=== PATIENT | female | born 1965 | race American Indian/Alaskan Native ===

== ENCOUNTER 2018-02-04 17:17 | Emergency (ER) | payer BC ==
[2018-02-04 17:21] VITALS: BP 109/67; RESP 18; TEMP 97.6; BMI 22.8
[2018-02-04 19:23] LABS: BASO # 0.03 K/mm3 (0.0-2.0); BASO % 0.5 % (0.0-3.0); EOS % 0.3 % (1.5-5.0); GRAN # 4.07 (1.4-6.5); GRAN % 62.4 % (50.0-68.0); HEMOGLOBIN 13.9 g/dL (12.0-16.0); LYMPH # 1.9 (1.2-3.4); LYMPH % 29.4 % (22.0-35.0); MEAN CELL VOLUME 88.9 fl (80.0-105.0); MEAN CORPUSCULAR HEMOGLOBIN 30.8 pg (25.0-35.0); MEAN CORPUSCULAR HGB CONC 34.7 g/dl (31.0-37.0); MEAN PLATELET VOLUME 10.6 fl (7.0-11.0); MONO # 0.5 (0.1-0.6); MONO % 7.4 % (1.0-6.0); RBC 4.51 10^6/uL (3.5-6.1); RED CELL DISTRIBUTION WIDTH 13.4 % (11.5-14.5); WHITE BLOOD COUNT 6.5 10^3/ul (4.5-11.0)
[2018-02-04 19:33] LABS: ALB/GLOB RATIO 1.2 (1.1-1.8); ALBUMIN 4.7 g/dL (3.0-4.8); ALT/SGPT 37 U/L (7-56); AST/SGOT 38 U/L (14-36); BLOOD UREA NITROGEN 13 mg/dL (7-21); GFR AFRICAN-AMERICAN > 60; GFR NON-AFRICAN AMERICAN > 60
--- NOTE | 2018-02-04 20:45 | ED PDOC ---
Arrival/HPI - General Historian: Patient <Romelia Langford - Last Filed: 02/04/18 20:41> <Hemant Segal - Last Filed: 02/04/18 22:39> - General Chief Complaint: Lower Extremity Problem/Injury Time Seen by Provider: 02/04/18 18:32 - History of Present Illness Narrative History of Present Illness (Text): 02/04/18 20:42 52yr old female presents today with left knee pain and swelling since yesterday. Patient states she was going up the stairs and suddenly felt pain in the left knee. Patient states since then she's noticed significant swelling warmth and pain with range of motion of the knee. Patient states she is able to ambulate but is having significant pain. No medications have been taken for pain at home. Patient denies numbness weakness or tingling in the extremity. Patient denies fevers or chills. No chest pain or shortness of breath. Patient denies any trauma or injury but states she was marching over the weekend. ( Romelia Langford) Past Medical History - Provider Review Nursing Documentation Reviewed: Yes - Travel History Have you recently traveled outside [place] w/in the past 3 mons?: No - Reproductive Menopause: Yes - Psychiatric Hx Substance Use: No - Anesthesia Hx Anesthesia: No <Romeila Langford - Last Filed: 02/04/18 20:41> Family/Social History - Physician Review Nursing Documentation Reviewed: Yes Family/Social History: Unknown Family HX Smoking Status: Never Smoked Hx Alcohol Use: No Hx Substance Use: No <Romelia Langford - Last Filed: 02/04/18 20:41> Allergies/Home Meds <Romelia Langford - Last Filed: 02/04/18 20:41> <Hemant Segal - Last Filed: 02/04/18 22:39> Allergies/Adverse Reactions: Allergies No Known Allergies Allergy (Verified 02/04/18 18:51) Review of Systems - Review of Systems Constitutional: absent: Fatigue, Fevers Respiratory: absent: SOB, Cough Cardiovascular: absent: Chest Pain, Palpitations Gastrointestinal: absent: Abdominal Pain, Nausea, Vomiting Musculoskeletal: Arthralgias, Joint Swelling Neurological: absent: Headache, Dizziness Psychiatric: absent: Anxiety, Depression <Romelia Langford - Last Filed: 02/04/18 20:41> Physical Exam Vital Signs Reviewed: Yes Temperature: Afebrile Blood Pressure: Normal Pulse: Regular Respiratory Rate: Normal Appearance: Positive for: Well-Appearing, Non-Toxic, Comfortable Pain Distress: None Mental Status: Positive for: Alert and Oriented X 3 - Systems Exam Head: Present: Atraumatic Neck: Present: Normal Range of Motion Respiratory/Chest: Present: Clear to Auscultation, Good Air Exchange. No: Respiratory Distress, Accessory Muscle Use Cardiovascular: Present: Regular Rate and Rhythm, Normal S1, S2. No: Murmurs Abdomen: No: Tenderness, Rebound, Guarding Back: Present: Normal Inspection Lower Extremity: Present: NORMAL PULSES, Tenderness (left knee; + ttp and edema noted over the anterior inferior aspect of the knee; pain with ROM of knee. no calf tenderness. sensation and distal pulses intact. cap refill <2. ), Swelling , Neurovascularly Intact, Capillary Refill < 2 s, Other (+ warmth over knee). No: CALF TENDERNESS, Normal ROM Neurological: Present: GCS=15, Speech Normal Skin: Present: Warm, Dry, Normal Color Psychiatric: Present: Alert, Oriented x 3 <Romelia Langford T - Last Filed: 02/04/18 20:41> Vital Signs Temp Pulse Resp BP Pulse Ox 02/04/18 17:20 97.6 F 99 H 18 109/67 100 Medical Decision Making <Romelia Langford T - Last Filed: 02/04/18 20:41> <Hemant Segal T - Last Filed: 02/04/18 22:39> ED Course and Treatment: 02/04/18 20:47 52-year-old female with severe left knee pain that started yesterday. CBC within normal limits CMP within normal limits X-ray of the left knee no fracture. No foreign body toradol given for pain. Patient was seen and evaluated by Dr. SEGAL. will add ESR and CRP; case signed out to dr. SEGAL pending ESR and CRP, re-evaluation, disposition. (Romelia Langford) ESR milldy elevated at 25. CRP will not be performed tonight, will be shipped to [facility] in morning accordin to lab. After toradol, patient states she feels much better and range of motion actively and passively has great improved past 90 degrees to full extended. Due to small apparent effusion and warmth and initial limited ROM, I recommended a joint aspiration to rule out septic arthritis. I explained the risks and benefits of this procedure and explained the risk of , permanent disability, and possible need for joint replacement with patient should a septic joint not be diagnosed. She understood the risks and benefits but did not wish to have the joint aspiration performed and stated she will attempt NSAIDs for the next few days and follow up with her doctor given how much better she was feeling after the toradol administration. (Philipp,Hemant Bruno) - Lab Interpretations Lab Results: 02/04/18 19:03 02/04/18 19:03 Lab Results 02/04/18 19:03: ESR 25 H 02/04/18 19:03: WBC 6.5, RBC 4.51, Hgb 13.9, Hct 40.1, MCV 88.9, MCH 30.8, MCHC 34.7, RDW 13.4, Plt Count 293, MPV 10.6, Gran % 62.4, Lymph % (Auto) 29.4, [place] % (Auto) 7.4 H, Eos % (Auto) 0.3 L, Baso % (Auto) 0.5, Gran # 4.07, Lymph # ( Auto) 1.9, [place] # (Auto) 0.5, Eos # (Auto) 0.0, Baso # (Auto) 0.03 02/04/18 19:03: Sodium 144, Potassium 3.8, Chloride 103, Carbon Dioxide 28, Anion Gap 18, BUN 13, Creatinine 0.8, Est GFR ( Amer) > 60, Est GFR (Non- Af Amer) > 60, Random Glucose 93, Calcium 10.0, Total Bilirubin 0.4, AST 38 H, ALT 37, Alkaline Phosphatase 92, Total Protein 8.7 H, Albumin 4.7, Globulin 4.0 , Albumin/Globulin Ratio 1.2 - RAD Interpretation Radiology Orders: 02/04/18 18:52 KNEE WITH PATELLA LEFT 3 VIEW [RAD] Stat - Medication Orders Current Medication Orders: Discontinued Medications Ketorolac Tromethamine (Toradol) 30 mg IVP STAT STA Stop: 02/04/18 19:53 Last Admin: 02/04/18 20:03 Dose: 30 mg MAR Pain Assessment Document 02/04/18 20:03 SS (Rec: 02/04/18 20:03 SS [id number]) Pain Reassessment Is this a pain reassessment? No Sleep Is patient sleeping during reassessment? No Presence of Pain Presence of Pain Yes Pain Scale Used Pain Scale Used Numeric Location Left, Right or Bilateral Left Pain Location Body Site Knee IVP Administration Document 02/04/18 20:03 SS (Rec: 02/04/18 20:03 SS [id number]) Charges for Administration # of IVP Administrations 1 Disposition/Present on Arrival - Present on Arrival History of DVT/PE: No History of Uncontrolled Diabetes: No Urinary Catheter: No History of Decub. Ulcer: No History Surgical Site Infection Following: None <Romelia Langford T - Last Filed: 02/04/18 20:41> - Present on Arrival Any Indicators Present on Arrival: No - Disposition Have Diagnosis and Disposition been Completed?: Yes Disposition Time: 22:38 Patient Plan: Discharge <Hemant Segal T - Last Filed: 02/04/18 22:39> - Disposition Diagnosis: Knee pain Disposition: AGAINST MEDICAL ADVICE Condition: UNKNOWN Discharge Instructions (ExitCare): Knee Pain (DC) Prescriptions: Famotidine [Pepcid] 1 tab PO BID #14 tab Ibuprofen [Motrin] 600 mg PO Q6 #25 tab Referrals: [facility] Vizcarra, [Primary Care Provider] - Follow up with primary Forms: [employer] ([place]) - AMA Patient Left Against Medical Advice: The patient declines admission to the hospital and wishes to leave the Emergency Department. This action is against my medical advice. This decision was made with informed refusal. The patient was told that admission to the hospital is necessary. Explanation of the reasons why were discussed. The risks of leaving were explained to the patient and include, but are not limited to, worsening of known or currently unknown conditions, permanent disability and from undiagnosed or untreated conditions. The patient has the capacity to make this informed decision and understands my explanation of the current medical problem and risks of leaving. The patient voluntarily accepts these risks and signed an AMA form documenting our conversation. The patient was given the opportunity to ask questions and reconsider. The patient was encouraged to return to the Emergency Department at any time for further care.
[2018-02-04 22:54] VITALS: PULSE 88; O2SAT 98
--- NOTE | 2018-02-05 09:15 | RAD ---
PROCEDURE: Left Knee Radiographs. HISTORY: Pain. No history of recent/ related trauma provided COMPARISON: None. FINDINGS: BONES: Normal. No fracture. JOINTS: Normal. No osteoarthritis. JOINT EFFUSION: None. OTHER FINDINGS: None. IMPRESSION: No significant or acute findings to account for/ related to the clinical presentation.
== END 2018-02-04 22:53 | disposition left against medical advice (07) ==
LOC: ED 17:17
DX: M25.562 Pain in left knee (principal)
CPT/HCPCS: 73562; 80053; 85025; 85651; 86140; 87040; 96374; 99283; J1885